=== PATIENT | female | born 1990 | race African-American/Black ===

== ENCOUNTER 2017-03-04 11:12 | Emergency (ER) | payer SELFPAY ==
[~2017-03-04] VITALS: Ht 170.2 cm; Wt 55.0 kg
[~2017-03-04 11:12] MED LIST: ALBU8I INH; PERC5TAB12 PO
[2017-03-04 11:14] VITALS: BP 123/79; PULSE 100; RESP 20; TEMP 98.3; O2SAT 100
--- NOTE | 2017-03-04 11:38 | PD ---
HPI Chief Complaint: Related Problem Time Seen by Provider: 11:37 Travel History International Travel<30 days: No Contact w/Intl Traveler<30days: No Traveled to known affect area: No History of Present Illness HPI 26-year-old female presents emergency Department requesting blood test for . Says she's taken 5 tests; 2 inconclusive, 2 negative, and one positive. Says menstrual period are very irregular and she thinks her last menstrual period was February 21. Reports lower abdominal cramping. Reports dysuria and hesitancy. Reports nausea without vomiting. Denies fevers. Denies vaginal discharge, odor, vaginal bleeding. PFSH Past Medical History Asthma: Yes Diminished Hearing: No Immunizations Current: Yes ?: Unknown LMP: 02/21/17 : 1 Para: 1 Social History Alcohol Use: No Tobacco Use: Yes (1PPWEEEK) Substance Use: Yes (MARIJUANA EVERY OTHER DAY) Allergies-Medications (Allergen,Severity, Reaction): Coded Allergies: benzocaine (Unverified Allergy, Unknown, RASH, 03/04/17) menthol (Unverified Allergy, Unknown, RASH, 03/04/17) Reported Meds & Prescriptions Reported Meds & Active Scripts Active Keflex (Cephalexin) 500 Mg Cap 500 Mg PO Q12H 5 Days Review of Systems Except as stated in HPI: all other systems reviewed are Neg Physical Exam Narrative GENERAL: Well-nourished, well-developed black female patient, in no acute distress; afebrile, nontoxic-appearing SKIN: Warm and dry. No rash. HEAD: Atraumatic. Normocephalic. EYES: Pupils equal and round. No scleral icterus. No injection or drainage. ENT: Mucosa pink and moist. NECK: Trachea midline. CARDIOVASCULAR: Regular rate. RESPIRATORY: No accessory muscle use. GASTROINTESTINAL: Abdomen soft, tenderness to lower pelvic region, nondistended. Hepatic and splenic margins not palpable. Bowel sounds are active 4 quadrants. Bladder nontender and nondistended. MUSCULOSKELETAL: No obvious deformities. No clubbing. No cyanosis. No edema. BACK: No CVA tenderness NEUROLOGICAL: Awake and alert. Oriented 3. No obvious cranial nerve deficits. Motor grossly within normal limits. Normal speech. Moves all extremities. 5/5 strength to all extremities. PSYCHIATRIC: Appropriate mood and affect; insight and judgment normal. Data Data Last Documented VS Vital Signs Date Time Temp Pulse Resp B/P (MAP) Pulse Ox O2 Delivery O2 Flow Rate FiO2 03/04/17 11:14 98.3 100 20 123/79 (94) 100 Room Air Orders Orders Urinalysis - C+S If Indicated (03/04/17 11:38) Ed Urine Pregnancytest Poc (03/04/17 11:38) Beta Hcg (Quant/Titer) (03/04/17 11:40) Labs Laboratory Tests Test 03/04/17 11:45 03/04/17 11:51 Urine Color YELLOW Urine Turbidity HAZY Urine pH 6.5 Urine Specific [place] 1.015 Urine Protein NEG mg/dL Urine Glucose (UA) NEG mg/dL Urine Ketones NEG mg/dL Urine Occult Blood NEG Urine Nitrite NEG Urine Bilirubin NEG Urine Urobilinogen LESS THAN 2.0 MG/DL Urine Leukocyte Esterase TRACE Urine RBC 1 /hpf Urine WBC 3 /hpf Urine Squamous Epithelial Cells 11 /hpf Urine Mucus FEW /lpf Microscopic Urinalysis Comment CULT NOT INDICATED Human Chorionic Gonadotropin, Quant LESS THAN 1 MIU/ML MDM Medical Decision Making Medical Screen Exam Complete: Yes Emergency Medical Condition: Yes Medical Record Reviewed: Yes Differential Diagnosis , urinary tract infection, cystitis Narrative Course 26-year-old female with concern of . She is having some lower abdominal cramping. Last menstrual period February 21. Took 5 tests at home and one was positive; last test taken a few days ago was negative. Denies vaginal symptoms. Urine , urinalysis, beta hCG ordered. 1146: UPT negative. 1250: Beta hCG less than 1. Urine with leukocyte esterase. Secondary to patient having urinary symptoms I will treat with antibiotics. Keflex prescribed for home. Instructed patient to follow up with primary care provider. Patient verbalizes understanding and agreement with treatment plan. Patient is medically cleared and stable for discharge. Discussed reasons to return to the emergency department. Patient agrees with treatment plan. The patients vital signs are stable and the patient is stable for outpatient follow- up and treatment. Patient discharged home, stable and in no acute distress. Diagnosis Primary Impression: Negative test Additional Impression: Cystitis Referrals: Primary Care Physician Patient Instructions: General Instructions, Interstitial Cystitis (ED) Additional Instructions: Take antibiotics as prescribed and complete full course Drink plenty of fluids Maintain good personal hygiene Follow-up with primary care provider Return to the emergency department immediately with worsening of symptoms Med/Other Pt SpecificInfo: Prescription(s) given Scripts Cephalexin (Keflex) 500 Mg Cap 500 MG PO Q12H for Infection for 5 Days, CAP 0 Refills Prov: Christina Tomlinson 03/04/17 Disposition: 01 DISCHARGE HOME Condition: Stable Christina Tomlinson Mar 04, 2017 11:38
[2017-03-04 12:08] LABS: BLOOD, URINE NEG (NEG); COMMENT (UR) CULT NOT INDICATED; CULTURE IF INDICATED CULT NOT INDICATED; GLUCOSE,URINE NEG (NEG); KETONE, URINE NEG (NEG); MUCUS URINE FEW /lpf (OCC); NITRITE,URINE NEG (NEG); PH, URINE 6.5 (5.0-8.5); SQUAMOUS EPITHELIAL CELL URINE 11 /hpf (0-5); URINE COLOR YELLOW (YELLW/STRAW)
[2017-03-04 12:44] LABS: BETA HCG QUANT LESS THAN 1 MIU/ML (0-5)
[2017-03-04] MEDS ORDERED: CEPH-460 PO (12:50)
== END 2017-03-04 13:01 | disposition home or self-care (01) ==
LOC: NEPD 11:12
DX: N30.90 Cystitis, unspecified without hematuria (principal); J45.909 Unspecified asthma, uncomplicated; F17.210 Nicotine dependence, cigarettes, uncomplicated; Z32.02 Encounter for pregnancy test, result negative; Z88.8 Allergy status to other drugs, medicaments and biological substances
CPT/HCPCS: 81001; 84702; 84703; 99283

== ENCOUNTER 2017-08-30 13:26 | Emergency (ER) | payer MEDICAID ==
[~2017-08-30 13:26] MED LIST changes: -ALBU8I INH; +CEPH-460 PO; -PERC5TAB12 PO
[2017-08-30 14:07] VITALS: BP 128/77; PULSE 87; RESP 16; TEMP 98.8; O2SAT 100
[2017-08-30 15:00] LABS: AUTOMATED NEUTROPHIL # 5.1 TH/MM3 (1.8-7.7); BASOPHIL % 0.2 % (0.0-2.0); EOSINOPHIL # 0.1 TH/MM3 (0-0.4); EOSINOPHIL % 1.3 % (0.0-4.0); HEMATOCRIT 32.5 % (35.0-46.0); HEMOGLOBIN 10.8 GM/DL (11.6-15.3); LYMPH % 28.7 % (9.0-44.0); LYMPHOCYTE # 2.3 TH/MM3 (1.0-4.8); MEAN CELL VOLUME 85.6 FL (80.0-100.0); MEAN CORPUSCULAR HEMOGLOBIN 28.4 PG (27.0-34.0); MEAN CORPUSCULAR HGB CONC 33.1 % (32.0-36.0); MEAN PLATELET VOLUME 8.2 FL (7.0-11.0); MONO % 6.4 % (0.0-8.0); MONOCYTE # 0.5 TH/MM3 (0-0.9); NEUT % 63.4 % (16.0-70.0); PLATELET COUNT 185 TH/MM3 (150-450); RED CELL DISTRIBUTION WIDTH 12.4 % (11.6-17.2)
[2017-08-30 15:01] LABS: BILIRUBIN, URINE NEG (NEG); BLOOD, URINE NEG (NEG); GLUCOSE,URINE NEG (NEG); KETONE, URINE NEG (NEG); MUCUS URINE FEW /lpf (OCC); NITRITE,URINE NEG (NEG); SQUAMOUS EPITHELIAL CELL URINE 1 /hpf (0-5); URINE COLOR YELLOW (YELLW/STRAW); URINE LEUKOCYTE ESTERASE NEG (NEG)
[2017-08-30 15:31] LABS: ALBUMIN 3.4 GM/DL (3.4-5.0); ALT (GPT) 17 U/L (10-53); AST (GOT) 12 U/L (15-37); BLOOD UREA NITROGEN 6 MG/DL (7-18); CALCIUM 8.4 MG/DL (8.5-10.1); CHLORIDE 105 MEQ/L (98-107); CREATININE 0.54 MG/DL (0.50-1.00); GLOMERULAR FILTRATION RATE 166 ML/MIN (>89); GLUCOSE,RANDOM 81 MG/DL (74-106); SODIUM (NA) 135 MEQ/L (136-145)
[2017-08-30 15:48] LABS: ALKALINE PHOSPHATASE 46 U/L (45-117); TOTAL BILIRUBIN ADULT 0.2 MG/DL (0.2-1.0); TOTAL PROTEIN 7.3 GM/DL (6.4-8.2)
--- NOTE | 2017-08-30 16:12 | PD ---
HPI Chief Complaint: Related Problem Time Seen by Provider: 15:37 Travel History International Travel<30 days: No Contact w/Intl Traveler<30days: No Traveled to known affect area: No History of Present Illness HPI 27 year old female presents to the emergency department for evaluation of pelvic cramping during . She denies any vaginal bleeding or abnormal vaginal discharge. Patient rates the pain 7/10 to her vagina and pelvic region. Patient is concerned there is something "wrong with my baby". Patient reports being approximately 13 weeks . Patient has not yet followed up with an coordinator of genetic services. Patient is a G2, P1 with an 8-year-old son. No exacerbating or alleviating factors. Moderate severity. PFSH Past Medical History Asthma: Yes Diminished Hearing: No Immunizations Current: Yes ?: : 1 Para: 1 Social History Alcohol Use: Yes (weekly) Tobacco Use: Yes (1PPWEEEK) Substance Use: Yes (MARIJUANA EVERY OTHER DAY) Allergies-Medications (Allergen,Severity, Reaction): Coded Allergies: benzocaine (Unverified Allergy, Unknown, RASH, 08/30/17) menthol (Unverified Allergy, Unknown, RASH, 08/30/17) Reported Meds & Prescriptions Reported Meds & Active Scripts Active No Active Prescriptions or Reported Medications Review of Systems Except as stated in HPI: all other systems reviewed are Neg Physical Exam Narrative GENERAL: Well-nourished, well-developed female patient, afebrile. SKIN: Focused skin assessment warm/dry. HEAD: Normocephalic. Atraumatic. EYES: No scleral icterus. No injection or drainage. NECK: Supple, trachea midline. No JVD or lymphadenopathy. CARDIOVASCULAR: Regular rate and rhythm without murmurs, gallops, or rubs. RESPIRATORY: Breath sounds equal bilaterally. No accessory muscle use. Lungs sounds clear to auscultation. GASTROINTESTINAL: Abdomen soft and nondistended. Mild pelvic tenderness to palpation.. MUSCULOSKELETAL: No cyanosis, or edema. BACK: Nontender without obvious deformity. No CVA tenderness. GENITOURINARY: Normal external genitalia without lesions or erythema. Vaginal vault without blood or drainage. Cervical os was closed without drainage. No cervical motion tenderness. Uterus nontender and nonenlarged. Bilateral adnexa nontender without masses. Exam was done with ISAURO Whitaker, at bedside. Data Data Last Documented VS Vital Signs Date Time Temp Pulse Resp B/P (MAP) Pulse Ox O2 Delivery O2 Flow Rate FiO2 08/30/17 14:07 98.8 87 16 128/77 (94) 100 Orders Orders Beta Hcg (Quant/Titer) (08/30/17 14:10) Complete Blood Count With Diff (08/30/17 14:10) Comprehensive Metabolic Panel (08/30/17 14:10) Gc And Chlamydia Pcr (08/30/17 14:10) Urinalysis - C+S If Indicated (08/30/17 14:10) Wet Prep Profile (08/30/17 15:50) Ed Poc Ultrasound (08/30/17 15:51) Labs Laboratory Tests Test 08/30/17 14:35 08/30/17 16:00 White Blood Count 8.0 TH/MM3 Red Blood Count 3.80 MIL/MM3 Hemoglobin 10.8 GM/DL Hematocrit 32.5 % Mean Corpuscular Volume 85.6 FL Mean Corpuscular Hemoglobin 28.4 PG Mean Corpuscular Hemoglobin Concent 33.1 % Red Cell Distribution Width 12.4 % Platelet Count 185 TH/MM3 Mean Platelet Volume 8.2 FL Neutrophils (%) (Auto) 63.4 % Lymphocytes (%) (Auto) 28.7 % Monocytes (%) (Auto) 6.4 % Eosinophils (%) (Auto) 1.3 % Basophils (%) (Auto) 0.2 % Neutrophils # (Auto) 5.1 TH/MM3 Lymphocytes # (Auto) 2.3 TH/MM3 Monocytes # (Auto) 0.5 TH/MM3 Eosinophils # (Auto) 0.1 TH/MM3 Basophils # (Auto) 0.0 TH/MM3 CBC Comment DIFF FINAL Differential Comment Urine Color YELLOW Urine Turbidity CLEAR Urine pH 7.0 Urine Specific [place] 1.019 Urine Protein NEG mg/dL Urine Glucose (UA) NEG mg/dL Urine Ketones NEG mg/dL Urine Occult Blood NEG Urine Nitrite NEG Urine Bilirubin NEG Urine Urobilinogen LESS THAN 2.0 MG/DL Urine Leukocyte Esterase NEG Urine RBC LESS THAN 1 /hpf Urine WBC 1 /hpf Urine Squamous Epithelial Cells 1 /hpf Urine Mucus FEW /lpf Microscopic Urinalysis Comment CULT NOT INDICATED Blood Urea Nitrogen 6 MG/DL Creatinine 0.54 MG/DL Random Glucose 81 MG/DL Total Protein 7.3 GM/DL Albumin 3.4 GM/DL Calcium Level 8.4 MG/DL Alkaline Phosphatase 46 U/L Aspartate Amino Transf (AST/SGOT) 12 U/L Alanine Aminotransferase (ALT/SGPT) 17 U/L Total Bilirubin 0.2 MG/DL Sodium Level 135 MEQ/L Potassium Level 3.9 MEQ/L Chloride Level 105 MEQ/L Carbon Dioxide Level 25.0 MEQ/L Anion Gap 5 MEQ/L Estimat Glomerular Filtration Rate 166 ML/MIN Human Chorionic Gonadotropin, Quant 47123 MIU/ML Clue Cells (Wet Prep) PRESENT Vaginal Trichomonas (Wet Prep) NONE SEEN Vaginal Yeast (Wet Prep) NONE SEEN MDM Medical Decision Making Medical Screen Exam Complete: Yes Emergency Medical Condition: Yes Medical Record Reviewed: Yes Differential Diagnosis Intrauterine versus ectopic versus threatened Narrative Course 27-year-old female presents to the emergency department for evaluation of pelvic cramping during . She denies any vaginal bleeding. Patient has not yet followed up with her coordinator of genetic services. CBC shows anemia with hemoglobin 10.8, hematocrit 32.5. CMP shows no acute abnormality. Beta hCG is 54,388. UA is negative for acute infection. Wet prep profile is pending. Chlamydia and gonorrhea were sent by urine in triage. Bedside ultrasound was completed by me my attending physician, Dr. Ch, which shows intrauterine , heart rate approximately 160 bpm. Wet prep is positive for clue cells, negative for trichomonas and yeast. Patient will be discharged with a prescription for Flagyl for bacterial vaginosis. However, patient eloped before receiving prescription. Diagnosis Primary Impression: Intrauterine Additional Impression: Bacterial vaginosis Referrals: Chief Power Dispatcher call for appointment Patient Instructions: Bacterial Vaginosis (ED), General Instructions, (ED) Additional Instructions: Take Flagyl as directed until gone. Follow-up with your coordinator of genetic services. Return to the emergency department for any acute worsening of symptoms. Med/Other Pt SpecificInfo: Prescription(s) given Scripts Metronidazole (Flagyl) 500 Mg Tab 500 MG PO BID for Infection for 7 Days, #14 TAB 0 Refills Prov: Steff Bo [place] 08/30/17 Disposition: 01 DISCHARGE HOME Condition: Stable Steff Bo Aug 30, 2017 16:12
[2017-08-30] MEDS ORDERED: METR-1 PO (16:51)
== END 2017-08-30 16:45 | disposition home or self-care (01) ==
LOC: NEPC 13:26
DX: O26.91 Pregnancy related conditions, unspecified, first trimester (principal); N76.0 Acute vaginitis; R10.2 Pelvic and perineal pain; F17.210 Nicotine dependence, cigarettes, uncomplicated; F12.90 Cannabis use, unspecified, uncomplicated; Z3A.13 13 weeks gestation of pregnancy
CPT/HCPCS: 80053; 81001; 84702; 85025; 87210; 87491; 87591; 99284